=== PATIENT | female | born 1955 | race Caucasian/White ===

== ENCOUNTER 2021-03-17 02:10 | Emergency (ER) | payer MEDICARE, OTHER ==
[~2021-03-17] VITALS: Ht 165.1 cm; Wt 122.5 kg
[2021-03-17] MEDS ORDERED: MESTINON60 MG PO (02:25)
[2021-03-17] MEDS ORDERED: ACID REDUCER10 MG PO (02:25)
[2021-03-17] MEDS ORDERED: CRESTOR10 M1 PO (02:26)
[2021-03-17] MEDS ORDERED: TENORMIN50 MG PO (02:26)
[2021-03-17] MEDS ORDERED: GLYCOPYRROLATE1 MG PO (02:26)
[2021-03-17] MEDS ORDERED: PREDNISONE5 MG PO (02:27)
[2021-03-17] MEDS ORDERED: IMURAN50 MG PO (02:27)
[2021-03-17] MEDS ORDERED: VALSARTAN-HCTZ1 EACH PO (02:27)
[2021-03-17] MEDS ORDERED: VITAMIN D31250 MCG PO (02:28)
[2021-03-17] MEDS ORDERED: GLUCOPHAGE500 M1 PO (02:29)
[2021-03-17] MEDS ORDERED: COLCRYS0.6 M1 PO (02:29)
[2021-03-17 02:56] LABS: BASO % 0.3 % (0.0-1.0); EOS % 0.4 % (1.0-4.0); HEMATOCRIT 42.5 % (37.0-47.0); LYMPH # 0.8 10*3/uL (1.3-4.4); LYMPH % 10.7 % (27.0-41.0); MEAN CELL VOLUME 92.6 fl (81.0-99.0); MEAN CORPUSCULAR HGB 30.9 pg (27.0-31.0); MEAN CORPUSCULAR HGB CONC 33.4 g/dl (33.0-37.0); MEAN PLATELET VOLUME 9.4 fl (9.6-12.3); MONO # 0.8 10*3/uL (0.1-1.0); NEUT # 5.5 10*3/uL (2.3-7.9); NEUT % 77.3 % (47.0-73.0); PLATELET COUNT AUTOMATED 228 10*3/uL (130-400); RED BLOOD COUNT 4.59 10*6/uL (4.10-5.10); RED CELL DISTRI WIDTH 13.2 % (0-14.5); WHITE BLOOD COUNT 7.1 10*3/uL (4.8-10.8)
[2021-03-17 03:13] LABS: ALBUMIN 3.2 gm/dl (3.1-4.5); CREATININE 1.34 mg/dL (0.55-1.02); POTASSIUM 3.8 mmol/L (3.5-5.1); TOTAL PROTEIN 8.6 gm/dL (6.4-8.2)
[2021-03-17] MEDS ORDERED: PREDNISONE20 M1 PO (04:55)
== END 2021-03-17 05:32 | disposition home or self-care (01) ==
LOC: ED 02:10
PROVIDERS: Internal Medicine
DX: B34.9 Viral infection, unspecified (principal); R79.82 Elevated C-reactive protein (CRP); I12.9 Hypertensive chronic kidney disease with stage 1 through stage 4 chronic kidney disease, or unspecified chronic kidney disease; E11.22 Type 2 diabetes mellitus with diabetic chronic kidney disease; N18.32 Chronic kidney disease, stage 3b; Z79.899 Other long term (current) drug therapy; Z79.84 Long term (current) use of oral hypoglycemic drugs